=== PATIENT | male | born 1990 | race Two or more races ===

== ENCOUNTER 2019-09-28 16:52 | Emergency (ER) | payer OTHER ==
[~2019-09-28] VITALS: Ht 170.2 cm; Wt 77.1 kg
[2019-09-28 17:21] VITALS: BP 140/70
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
--- NOTE | 2019-09-28 17:30 | NUR ---
ED Nurse Note: went to take x ray
--- NOTE | 2019-09-28 17:48 | NUR ---
ED Nurse Note: back from x ray
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
[2019-09-28] MEDS ORDERED: ROBAXIN-500MG ORAL (18:17)
[2019-09-28] MEDS ORDERED: IBUPROFEN600 MG ORAL (18:17)
[2019-09-28 18:21] VITALS: BP 132/70
--- NOTE | 2019-09-28 18:21 | NUR ---
ER DISCHARGE NOTE: Patient is cleared to be discharged per ERMD, pt is aox4, on room air, with stable vital signs. pt was given dc and prescription instructions, pt was able to verbalize understanding, pt id band removed without complications. pt is able to ambulate with steady gait. pt took all belongings.
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
== END 2019-09-28 18:21 | disposition home or self-care (01) ==
LOC: EMR 18:21
DX: S46.912A Strain of unspecified muscle, fascia and tendon at shoulder and upper arm level, left arm, initial encounter (principal); S80.01XA Contusion of right knee, initial encounter; V43.52XA Car driver injured in collision with other type car in traffic accident, initial encounter; Y92.411 Interstate highway as the place of occurrence of the external cause; Z88.2 Allergy status to sulfonamides; Z88.1 Allergy status to other antibiotic agents
CPT/HCPCS: 99284